=== PATIENT | female | born 1990 | race Two or more races ===

== ENCOUNTER 2025-03-17 12:44 | Emergency (ER) | payer OTHER ==
[~2025-03-17] VITALS: Ht 154.9 cm; Wt 61.2 kg
[2025-03-17] MEDS ORDERED: KETOROLAC TROMETHAMINE 30 MG VIAL IM STA (13:20)
[2025-03-17] MEDS ORDERED: ORPHENADRINE CITRATE 30 MG/ML AMPUL IM STA (13:20)
== END 2025-03-17 13:38 | disposition home or self-care (01) ==
LOC: ER 12:45
DX: M54.2 Cervicalgia (principal); R20.2 Paresthesia of skin